=== PATIENT | female | born 1985 | race American Indian/Alaskan Native ===

== ENCOUNTER 2017-08-12 06:16 | Emergency (ER) | payer OTHER ==
[2017-08-12 06:16] VITALS: BMI 22.6
[2017-08-12 06:37] VITALS: RESP 20
[2017-08-12] MEDS ORDERED: Sodium Chloride 0.9% 1,000 ML IV ONE ×2 (06:48→10:07)
[2017-08-12] MEDS ORDERED: Sodium Chloride 0.9% 1,000 ML ONE ×2 (06:51→10:11)
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
[2017-08-12 07:48] LABS: HCG,QUALITATIVE URINE NEGATIVE (NEGATIVE)
[2017-08-12 07:52] LABS: BASO % 0.2 % (0.0-2.0); LYMPH # 1.5 K/uL (1.0-4.3); LYMPH % 12.1 % (20.0-40.0); MEAN CORPUSCULAR HEMOGLOBIN 28.8 pg (27.0-31.0); MONO # 0.5 K/uL (0.0-0.8); MONO % 3.8 % (0.0-10.0); NEUT # 10.1 K/uL (1.8-7.0); NEUT % 83.9 % (50.0-75.0); NRBC % 0.1 % (0.0-2.0); RBC 4.6 Mil/uL (3.80-5.20); RED CELL DISTRIBUTION WIDTH 14.7 % (11.5-14.5); WHITE BLOOD COUNT 12.1 K/uL (4.8-10.8)
[2017-08-12 07:56] LABS: SQUAMOUS EPITHIAL 1 /hpf (0-5); URINE BILIRUBIN NEGATIVE (NEGATIVE); URINE BLOOD 2+ (NEGATIVE); URINE CLARITY Clear (Clear); URINE COLOR Yellow (YELLOW); URINE GLUCOSE (UA) 1+ mg/dL (Normal); URINE LEUKOCYTE ESTERASE NEG Leu/uL (Negative); URINE PROTEIN 1+ mg/dL (NEGATIVE); URINE UROBILINOGEN NORMAL mg/dL (0.2-1.0)
[2017-08-12 07:59] LABS: HEMOGLOBIN 13.3 g/dL (11.0-16.0); MEAN CELL VOLUME 87.3 fL (81.0-99.0)
[2017-08-12 09:46] LABS: ALB/GLOB RATIO 1.2 (1.0-2.1); ALBUMIN 4.5 g/dL (3.5-5.0); ALT/SGPT 18 U/L (9-52); AST/SGOT 29 U/L (14-36); BLOOD UREA NITROGEN 5 mg/dL (7-17); CALCIUM 9.3 mg/dl (8.6-10.4); GFR AFRICAN-AMERICAN > 60; GFR NON-AFRICAN AMERICAN > 60; LIPASE 30 U/L (23-300)
--- NOTE | 2017-08-12 09:59 | CT ---
PROCEDURE: CT Abdomen and Pelvis without intravenous contrast HISTORY: abd pain, vomiting, diarrhea COMPARISON: None. TECHNIQUE: Without contrast.. Contrast Dose: 0 Radiation dose: Total exam DLP = 306.48 mGy-cm. This CT exam was performed using one or more of the following dose reduction techniques: Automated exposure control, adjustment of the mA and/or kV according to patient size, and/or use of iterative reconstruction technique. FINDINGS: LOWER THORAX: Unremarkable. LIVER: Unremarkable. No gross lesion or ductal dilatation. GALLBLADDER AND BILE DUCTS: Unremarkable. PANCREAS: Unremarkable. No gross lesion or ductal dilatation. SPLEEN: Unremarkable. ADRENALS: Unremarkable. No mass. KIDNEYS AND URETERS: Unremarkable. No hydronephrosis. No solid mass. VASCULATURE: Unremarkable. No aortic aneurysm. BOWEL: Unremarkable. No obstruction. No gross mural thickening. APPENDIX: Unremarkable. Normal appendix. PERITONEUM: Unremarkable. No free fluid. No free air. LYMPH NODES: Unremarkable. No enlarged lymph nodes. BLADDER: Unremarkable. REPRODUCTIVE: Normal uterus. No adnexal masses. BONES: No acute fracture. OTHER FINDINGS: None. IMPRESSION: Unremarkable abdominal/ pelvic CT examination.
[2017-08-12 11:42] VITALS: BP 160/95; PULSE 100; TEMP 98.7; O2SAT 100
== END 2017-08-12 12:03 | disposition home or self-care (01) ==
LOC: C.ER 06:16
DX: K52.9 Noninfective gastroenteritis and colitis, unspecified (principal); I10 Essential (primary) hypertension
CPT/HCPCS: 74176; 80053; 81001; 83690; 84703; 85025; 96361; 96365; 96372; 96375; 99285; J0500; J1885; J2405; J2765; J7040

== ENCOUNTER 2018-07-29 09:59 | Emergency (ER) | payer OTHER ==
[2018-07-29 10:05] VITALS: BMI 24.0
[2018-07-29 10:08] VITALS: BP 124/98; PULSE 102; RESP 18; TEMP 97; O2SAT 98
[2018-07-29] MEDS ORDERED: Oxycodone/Acetaminophen 5/325 mg Tab PO STA (10:42)
[2018-07-29] MEDS ORDERED: Lidocaine 1% Inj (20ml) INFIL STA (10:43)
[2018-07-29] MEDS ORDERED: Lidocaine Hydrochloride 5 ML INJ ONE (11:04)
[2018-07-29] MEDS ORDERED: Oxycodone/Acetaminophen 5/325 mg Tab ONE (11:04)
--- NOTE | 2018-07-29 11:23 | C.PDOC ---
History Of Present Illness 32 year old female presents to ED with complaint of left buttock pain and swelling for the past 2 days. She states that she once had an abscess in this area years ago. Patient denies any fall or injury. Time Seen by Provider: 07/29/18 10:15 Chief Complaint (Nursing): Abnormal Skin Integrity History Per: Patient History/Exam Limitations: no limitations Onset/Duration Of Symptoms: Days (2) Current Symptoms Are (Timing): Still Present Location Of Injury: Left: Buttock Quality Of Symptoms: Painful, Swollen Past Medical History Reviewed: Historical Data, Nursing Documentation, Vital Signs Vital Signs: Last Vital Signs Temp 97 F L 07/29/18 10:04 Pulse 102 H 07/29/18 10:04 Resp 18 07/29/18 10:04 BP 124/98 H 07/29/18 10:04 Pulse Ox 98 07/29/18 10:04 - Medical History PMH: HTN Denies: Chronic Kidney Disease Surgical History: No Surg Hx - [facility] Procedures INSERTION OF INFUSION DEV INTO SUP VENA CAVA, PERC APPROACH (03/22/17) LOW CERVICAL (10/17/14) TRANSFUSE NONAUT RED BLOOD CELLS IN PERIPH VEIN, PERC (03/22/17) ULTRASONOGRAPHY OF LEFT UPPER EXTREMITY VEINS, GUIDANCE (03/22/17) Family History: States: Unknown Family Hx - Social History Hx Tobacco Use: No Hx Alcohol Use: No Hx Substance Use: Yes - Immunization History Hx Tetanus Toxoid Vaccination: No Hx Influenza Vaccination: No Hx Pneumococcal Vaccination: No Review Of Systems Constitutional: Negative for: Fever, Chills, Weakness Gastrointestinal: Negative for: Hematochezia Genitourinary: Negative for: Dysuria, Frequency Musculoskeletal: Positive for: Back Pain (left buttock pain and swelling) Neurological: Negative for: Weakness, Numbness, Dizziness Physical Exam - Physical Exam Appears: Non-toxic, Other (mild pain) Skin: Normal Color, Warm, Dry, Other (in medial aspect of the left buttock 3 cm fluctuant abscess, tender to palpation) Head: Atraumatic, Normacephalic Neck: Normal ROM, Supple Chest: Symmetrical, No Deformity Cardiovascular: Rhythm Regular, No Murmur Respiratory: No Accessory Muscle Use Gastrointestinal/Abdominal: Soft, No Tenderness Extremity: Capillary Refill (<2 seconds) Extremity: Bilateral: Atraumatic, Normal Color And Temperature Pulses: Left Radial: Normal, Right Radial: Normal Neurological/Psych: Oriented x3, Normal Speech, Normal Cognition ED Course And Treatment O2 Sat by Pulse Oximetry: 98 (RA) Progress Note: Patient given Clindomycin PO and Percocet PO. Wound culture ordered for patient. I&D performed. Patient tolerated procedure. Upon reassessment, patient is resting comfortably, in no distress, and is stable for discharge. Patient is advised to follow up with PMD within 1-2 days. Patient is advised to return to ED if symptoms persist or worsen. Procedure: Blank - Time Out Time Out: Patient ID confirmed, Sterile procedures obs. - Procedure Procedure:: I & D - Performed by: Performed by:: Attending physician - Anesthetic Technique Anesthetic Technique: Local (4 mL) - Topical: Local/Regional Anesthetic:: Lidocaine 1% - Location Location: Left, Buttock - Description Discription of Procedure: 07/29/18 (11 blade with iodoform gauze one quarter inch) - Post-Procedure Post-procedure:: Hemostasis achieved, Dressing applied - Patient Tolerated Procedure Patient Tolerated Procedure:: Well Disposition Counseled Patient/Family Regarding: Studies Performed, Diagnosis, Need For Followup, Rx Given - Disposition Referrals: Braulio Jackson MD [Staff Provider] - Disposition: HOME/ ROUTINE Disposition Time: 11:25 Condition: STABLE Additional Instructions: FOLLOW UP WITH YOUR DOCTOR IN 1-2 DAYS RETURN TO ER IN 48 HOURS FOR WOUND CHECK/PACKING REMOVAL USE MEDICATIONS DIRECTED, AND FINISH ALL ANTIBIOTICS Prescriptions: Clindamycin [Cleocin] 300 mg PO TID #21 cap Hydrocodone/Acetaminophen [Hydrocodone-Acetamin 5-325 mg] 1 each PO Q6 PRN #12 tablet PRN Reason: PAIN Naproxen 375 mg PO BID PRN #20 tablet PRN Reason: pain Instructions: Boil (DC) Forms: [facility] (Kiswahili), Work Excuse Print Language: UKRAINIAN - Clinical Impression Clinical Impression: Abscess, gluteal cleft - Scribe Statement The provider has reviewed the documentation as recorded by the Scribe (Brianna Cosby) All medical record entries made by the Scribe were at my direction and personally dictated by me. I have reviewed the chart and agree that the record accurately reflects my personal performance of the history, physical exam, medical decision making, and the department course for this patient. I have also personally directed, reviewed, and agree with the discharge instructions and disposition.
== END 2018-07-29 11:34 | disposition home or self-care (01) ==
LOC: C.ER 09:59
DX: L02.31 Cutaneous abscess of buttock (principal)

== ENCOUNTER 2018-07-29 19:11 | Emergency (ER) | payer OTHER ==
[2018-07-29 19:11] VITALS: BMI 24.0
[2018-07-29 19:44] VITALS: BP 144/79; PULSE 68; RESP 18; TEMP 97.9; O2SAT 99
--- NOTE | 2018-07-29 20:04 | C.PDOC ---
History Of Present Illness 32 year old female presents to ED s/p I&D of gluteal abscess that was done in [facility] [place] ED earlier today. Patient states that she was at home cleaning and accidentally pulled the packing out. Time Seen by Provider: 07/29/18 19:41 Chief Complaint (Nursing): Wound Check History Per: Patient History/Exam Limitations: no limitations Onset/Duration Of Symptoms: Hrs Current Symptoms Are (Timing): Still Present Location Of Injury: Posterior: Buttock (gluteal abscess) Past Medical History Reviewed: Historical Data, Nursing Documentation, Vital Signs Vital Signs: Last Vital Signs Temp 97.9 F 07/29/18 19:39 Pulse 68 07/29/18 19:39 Resp 18 07/29/18 19:39 BP 144/79 07/29/18 19:39 Pulse Ox 99 07/29/18 19:39 - Medical History PMH: HTN Denies: Chronic Kidney Disease Surgical History: No Surg Hx - [facility] Procedures INSERTION OF INFUSION DEV INTO SUP VENA CAVA, PERC APPROACH (03/22/17) LOW CERVICAL (10/17/14) TRANSFUSE NONAUT RED BLOOD CELLS IN PERIPH VEIN, PERC (03/22/17) ULTRASONOGRAPHY OF LEFT UPPER EXTREMITY VEINS, GUIDANCE (03/22/17) Family History: States: Unknown Family Hx - Social History Hx Tobacco Use: No Hx Alcohol Use: No Hx Substance Use: Yes - Immunization History Hx Tetanus Toxoid Vaccination: No Hx Influenza Vaccination: No Hx Pneumococcal Vaccination: No Review Of Systems Constitutional: Negative for: Fever, Chills, Weakness Musculoskeletal: Positive for: Back Pain (packing from previous I&D of gluteal abscess came out) Skin: Negative for: Rash Neurological: Negative for: Weakness, Numbness, Dizziness Physical Exam - Physical Exam Appears: Well, Non-toxic, No Acute Distress Skin: Normal Color, Warm, Dry, Other (no pus or drainage coming from unpacked gluteal abscess) Head: Atraumatic, Normacephalic Neck: Normal ROM, Supple Chest: Symmetrical, No Deformity Cardiovascular: Rhythm Regular, No Murmur Respiratory: No Accessory Muscle Use Gastrointestinal/Abdominal: Soft, No Tenderness Extremity: Capillary Refill (<2 seconds) Extremity: Bilateral: Atraumatic, Normal Color And Temperature Pulses: Left Radial: Normal, Right Radial: Normal Neurological/Psych: Oriented x3, Normal Speech, Normal Cognition Gait: Steady ED Course And Treatment O2 Sat by Pulse Oximetry: 99 Medical Decision Making Medical Decision Making: Impression: Packing removed from previous I&D of gluteal abscess. Plan: Affected area was bandaged. Patient instructed to keep area clean and dry. Upon reassessment, patient is resting comfortably, in no distress, and is stable for discharge. Patient advised to follow instructions in caring for the afflict ed area. Patient is advised to return to ED if symptoms persist or worsen. Disposition Counseled Patient/Family Regarding: Diagnosis, Need For Followup - Disposition Disposition: HOME/ ROUTINE Disposition Time: 20:04 Condition: STABLE Instructions: Wound Care (DC) Forms: [facility] ([place]ian), General Discharge Instructions - Clinical Impression Clinical Impression: Wound check, abscess - PA / PAIRING MACHINE OPERATOR / Resident Statement MD/DO has reviewed & agrees with the documentation as recorded. (Brianna Cosby) - Scribe Statement The provider has reviewed the documentation as recorded by the Scribe (Brianna Cosby) All medical record entries made by the Scribe were at my direction and personally dictated by me. I have reviewed the chart and agree that the record accurately reflects my personal performance of the history, physical exam, medical decision making, and the department course for this patient. I have also personally directed, reviewed, and agree with the discharge instructions and disposition.
== END 2018-07-29 20:05 | disposition home or self-care (01) ==
LOC: C.ER 19:11
DX: Z48.00 Encounter for change or removal of nonsurgical wound dressing (principal); L02.212 Cutaneous abscess of back [any part, except buttock and flank]

== ENCOUNTER 2018-09-28 18:15 | Emergency (ER) | payer OTHER | END 2018-09-28 23:17 | disposition home or self-care (01) | LOC: C.ER 18:15 ==

== ENCOUNTER 2018-09-29 11:28 | Inpatient (IN) | payer OTHER ==
[2018-09-29 11:29] VITALS: BMI 24.0
--- NOTE | 2018-09-29 13:13 | C.PDOC ---
History Of Present Illness 32 y/o female here for left lower ab pain and vomiting today. pt seen in ed yesterday for heavy vaginal bleeding with clots; pt had no iup yesterday with bhcg 1210. pt sts she woke with pain, which has now resolved. and bleeding has s.lowed down/ pt eating potato chips in ed. Time Seen by Provider: 09/29/18 12:27 Chief Complaint (Nursing): Abdominal Pain History Per: Patient History/Exam Limitations: no limitations Onset/Duration Of Symptoms: Days Current Symptoms Are (Timing): Still Present Severity: Moderate Past Medical History Reviewed: Historical Data, Nursing Documentation, Vital Signs Vital Signs: Last Vital Signs Temp 98.6 F 09/29/18 11:37 Pulse 77 09/29/18 11:37 Resp 18 09/29/18 11:37 BP 138/90 09/29/18 11:37 Pulse Ox 99 09/29/18 11:37 - Medical History PMH: HTN Denies: Chronic Kidney Disease Other Surgeries: Hx of surgeries - [facility] Procedures INSERTION OF INFUSION DEV INTO SUP VENA CAVA, PERC APPROACH (03/22/17) LOW CERVICAL (10/17/14) TRANSFUSE NONAUT RED BLOOD CELLS IN PERIPH VEIN, PERC (03/22/17) ULTRASONOGRAPHY OF LEFT UPPER EXTREMITY VEINS, GUIDANCE (03/22/17) Family History: States: No Known Family Hx - Social History Hx Tobacco Use: No Hx Alcohol Use: No Hx Substance Use: Yes (daily use of marijuana) - Immunization History Hx Tetanus Toxoid Vaccination: No Hx Influenza Vaccination: No Hx Pneumococcal Vaccination: No Review Of Systems Constitutional: Negative for: Fever, Chills Cardiovascular: Negative for: Chest Pain Respiratory: Negative for: Shortness of Breath Gastrointestinal: Positive for: Vomiting, Abdominal Pain. Negative for: Diarrhea Genitourinary: Positive for: Vaginal Bleeding Physical Exam - Physical Exam Appears: Non-toxic, No Acute Distress Skin: Warm, Dry Head: Atraumatic, Normacephalic Eye(s): bilateral: Normal Inspection Oral Mucosa: Moist Neck: Supple Chest: Symmetrical Cardiovascular: Rhythm Regular Respiratory: No Decreased Breath Sounds, No Rales, No Rhonchi, No Wheezing Gastrointestinal/Abdominal: Bowel Sounds, Soft, No Tenderness, No Distention, No Guarding, No Rebound Neurological/Psych: Oriented x3, Normal Speech, Normal Cognition ED Course And Treatment - Laboratory Results Result Diagrams: 09/29/18 13:18 09/29/18 13:18 O2 Sat by Pulse Oximetry: 99 (RA) Pulse Ox Interpretation: Normal - CT Scan/US US-Transvag. Other Rad Studies (CT/US): Read By Radiologist, Radiology Report Reviewed CT/US Interpretation: IMPRESSION: No evidence for intrauterine gestational sac. Small amount of free fluid in the cul-de-sac and right adnexa. Medical Decision Making Medical Decision Making: Plan: --Labs --UA --US-Transvag. --IV Fluids --Zofran IV Updates: 1340 pt now with pain again in left pelvic area and nauseous, will get sonogram and give zofran and iv fluids. 1521 pt not vomiting, still with tender llq. bhcg decreased to 1210, unlikely to be ectopic with decreasing bchg. await us results. no iup or ectopic noted on us. pt has been vomiting and retching persistently and c/o epigastric abdominal pain . given zofran 2 times. reglan and pepcid iv. [address] Jackson; pt has been admitted to his service at [place] several times for hyperemesis related to marijuana use. pt denies recent marijuana use. agrees to admission. Disposition Discussed With Dr.: Dalton Virgen Doctor Will See Patient In The: Hospital - Disposition Disposition: HOSPITALIZED Disposition Time: 18:47 Condition: GOOD Forms: [facility] (Colombian) - Clinical Impression Clinical Impression: Intractable vomiting with nausea - PA / LEATHER SPRAYER / Resident Statement MD/DO has reviewed & agrees with the documentation as recorded. - Scribe Statement The provider has reviewed the documentation as recorded by the Myrnaibe Seb Sandhu Provider Attestation All medical record entries made by the Scribe were at my direction and personally dictated by me. I have reviewed the chart and agree that the record accurately reflects my personal performance of the history, physical exam, medical decision making, and the department course for this patient. I have also personally directed, reviewed, and agree with the discharge instructions and disposition.
[2018-09-29 13:23] LABS: BASO % 0.5 % (0.0-2.0); EOS % 0.2 % (0.0-4.0); HEMOGLOBIN 10.6 g/dL (11.0-16.0); LYMPH # 1.2 K/uL (1.0-4.3); LYMPH % 16.1 % (20.0-40.0); MEAN CELL VOLUME 79.8 fL (81.0-99.0); MEAN CORPUSCULAR HEMOGLOBIN 25.8 pg (27.0-31.0); MEAN CORPUSCULAR HGB CONC 32.3 g/dL (33.0-37.0); MEAN PLATELET VOLUME 8.2 fL (7.2-11.7); MONO # 0.4 K/uL (0.0-0.8); MONO % 4.8 % (0.0-10.0); NEUT % 78.4 % (50.0-75.0); RBC 4.13 Mil/uL (3.80-5.20); RED CELL DISTRIBUTION WIDTH 17.6 % (11.5-14.5); WHITE BLOOD COUNT 7.6 K/uL (4.8-10.8)
[2018-09-29] MEDS ORDERED: Sodium Chloride 0.9% 1,000 ML IV ONE ×2 (13:52→18:36)
[2018-09-29 13:57] LABS: ALB/GLOB RATIO 1.5 (1.0-2.1); ALBUMIN 4.2 g/dL (3.5-5.0); ALT/SGPT 15 U/L (9-52); AST/SGOT 19 U/L (14-36); BLOOD UREA NITROGEN 6 mg/dL (7-17); CALCIUM 9.1 mg/dl (8.6-10.4); GFR NON-AFRICAN AMERICAN > 60
[2018-09-29] MEDS ORDERED: Sodium Chloride 0.9% 1,000 ML ONE (14:25)
--- NOTE | 2018-09-29 15:34 | US ---
Date of service: 09/29/2018 HISTORY: +[facility] [place], 1210 yesterday, left pelvic pain COMPARISON: None available. TECHNIQUE: Transvaginal pelvic ultrasound was performed. FINDINGS: UTERUS: Measures 12.0 x 5.9 x 6.9 cm. Anteverted, normal in size and appearance. No fibroid or other mass lesion seen. ENDOMETRIUM: Measures 16 mm in diameter. The central endometrial echo complex is normal in appearance. CERVIX: No cervical abnormality identified. RIGHT OVARY: Measures 2.7 x 2.9 x 3.0 cm. No solid mass. Normal flow. LEFT OVARY: Measures 3.0 x 3.0 x 2.9 cm. No solid mass. Normal flow. There is a 1.7 x 1.0 x 1.0 cm corpus luteum cyst. FREE FLUID: There is small amount of free fluid in the cul-de-sac and right adnexa.. OTHER FINDINGS: None. IMPRESSION: No evidence for intrauterine gestational sac. Small amount of free fluid in the cul-de-sac and right adnexa.
[2018-09-29 15:56] LABS: SQUAMOUS EPITHIAL 1 /hpf (0-5); URINE AMORPHOUS SEDIMENT RARE /ul (<OCC); URINE BACTERIA OCC (<OCC); URINE BILIRUBIN NEGATIVE (NEGATIVE); URINE BLOOD 2+ (NEGATIVE); URINE CLARITY Hazy (Clear); URINE COLOR Yellow (YELLOW); URINE GLUCOSE (UA) NORMAL (Normal); URINE LEUKOCYTE ESTERASE TRACE Leu/uL (Negative); URINE PROTEIN 1+ mg/dL (NEGATIVE); URINE UROBILINOGEN NORMAL mg/dL (0.2-1.0)
--- NOTE | 2018-09-29 19:31 | CP.PCM.HP ---
"<Ford Salinas - Last Filed: 09/30/18 06:06> History of Present Illness - History of Present Illness History of Present Illness: 32 year old female presents to the hospital after reporting vaginal bleeding for the past two days. Patient initially reported the vaginal bleeding on 09/28/18. Patient states she was resting at home when all of a sudden she started to pass large amounts of bright red blood with clots. Patient also had associated abdominal cramping as well. Patient states the pain was a 8/10 in severity. Patient denied taking any medication for the pain. Patient subs equently went into the emergency department where she was found to likely have a miscarriage. Patient was discharged and told to follow up with OB-MUSIC PUBLICIST. The patient awoke this morning and starting having similar abdominal cramping associated with bright blood and clots. Over the course of the two days patient states she needed to change her pads every couple of hours. Patient reported the pain was a 8/10 in severity and she decided to come back into the hospital. 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 In conjunction with the cramping she reported some nausea. Patient denies any dizziness, chest pain, shortness of breath, fevers, chills, headaches, changes in vision, or any other complaints. 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) OBGyn hx: (1 miscariage and 1 ) LEEP procedure done (Normal) Surg: (at 18 years old), x1 FHx: DM, HTN,?Lung CA (Paternal grandmother) All: NKDA SH: 6-7 cig/day x 15 years, social EtOH use, marijuana daily x17 years Present on Admission - Present on Admission Any Indicators Present on Admission: No Past Patient History - Infectious Disease Hx of Infectious Diseases: None - Tetanus Immunizations Tetanus Immunization: Unknown - Past Social History Smoking Status: Never Smoked - CARDIAC Hx Hypertension: Yes - PULMONARY Hx Respiratory Disorders: No - NEUROLOGICAL Hx Neurological Disorder: No - HEENT Hx HEENT Problems: No - RENAL Hx Chronic Kidney Disease: No - ENDOCRINE/METABOLIC Hx Endocrine Disorders: No - HEMATOLOGICAL/ONCOLOGICAL Hx Blood Disorders: No - INTEGUMENTARY Hx Dermatological Problems: No - MUSCULOSKELETAL/RHEUMATOLOGICAL Hx Musculoskeletal Disorders: No Hx Falls: No - GASTROINTESTINAL Hx Vomiting: Yes - GENITOURINARY/GYNECOLOGICAL Hx Genitourinary Disorders: No - PSYCHIATRIC Hx Substance Use: Yes (daily use of marijuana) - SURGICAL HISTORY Hx Surgeries: Yes Hx Section: Yes Other/Comment: - ANESTHESIA Hx Anesthesia: Yes Hx Anesthesia Reactions: No Hx Malignant Hyperthermia: No Meds Allergies/Adverse Reactions: Allergies Allergy/AdvReac Type Severity Reaction Status Date / Time No Known Allergies Allergy Verified 09/29/18 11:42 Physical Exam - Head Exam Head Exam: ATRAUMATIC, NORMAL INSPECTION - Eye Exam Eye Exam: EOMI, Normal appearance, PERRL Pupil Exam: NORMAL ACCOMODATION, PERRL. absent: Irregular, Unequal - ENT Exam ENT Exam: Mucous Membranes Moist, Normal Oropharynx - Respiratory Exam Respiratory Exam: Clear to Auscultation Bilateral, NORMAL BREATHING PATTERN. absent: Respiratory Distress - Cardiovascular Exam Cardiovascular Exam: REGULAR RHYTHM, +S1, +S2 - GI/Abdominal Exam GI & Abdominal Exam: Normal Bowel Sounds, Soft, Tenderness. absent: Organomegaly - Exam Additional comments: Patient refused to have vaginal exam done by me during visit. - Extremities Exam Extremities exam: Positive for: normal inspection. Negative for: full ROM, pedal edema - Back Exam Back exam: NORMAL INSPECTION. absent: CVA tenderness (R), paraspinal tenderness - Neurological Exam Neurological exam: Alert, CN II-XII Intact, Oriented x3 - Psychiatric Exam Psychiatric exam: Normal Affect, Normal Mood - Skin Skin Exam: Dry, Intact Results - Vital Signs Recent Vital Signs: Last Vital Signs Temp 98.1 F 09/29/18 19:28 Pulse 94 H 09/29/18 19:28 Resp 16 09/29/18 19:28 BP 131/72 09/29/18 19:28 Pulse Ox 99 09/29/18 19:28 - Labs Result Diagrams: 09/29/18 13:18 09/29/18 13:18 Labs: Laboratory Results - last 24 hr 09/29/18 09/29/18 09/29/18 13:18 13:18 15:45 WBC 7.6 RBC 4.13 Hgb 10.6 L Hct 33.0 L MCV 79.8 L MCH 25.8 L MCHC 32.3 L RDW 17.6 H Plt Count 290 MPV 8.2 Neut % (Auto) 78.4 H Lymph % (Auto) 16.1 L [place] % (Auto) 4.8 Eos % (Auto) 0.2 Baso % (Auto) 0.5 Neut # (Auto) 6.0 Lymph # (Auto) 1.2 [place] # (Auto) 0.4 Eos # (Auto) 0.0 Baso # (Auto) 0.0 Sodium 137 Potassium 4.0 Chloride 105 Carbon Dioxide 27 Anion Gap 8 L BUN 6 L Creatinine 0.5 L Est GFR ( Amer) > 60 Est GFR (Non-Af Amer) > 60 Random Glucose 103 Calcium 9.1 Total Bilirubin 0.4 AST 19 ALT 15 Alkaline Phosphatase 74 Total Protein 7.1 Albumin 4.2 Globulin 2.9 Albumin/Globulin Ratio 1.5 Beta HCG, Quant 755.05 Urine Color Yellow Urine Clarity Hazy Urine pH 8.0 Ur Specific [place] 1.015 Urine Protein 1+ H Urine Glucose (UA) Normal Urine Ketones 1+ H Urine Blood 2+ H Urine Nitrate Negative Urine Bilirubin Negative Urine Urobilinogen Normal Ur Leukocyte Esterase Trace Urine WBC (Auto) 2 Urine RBC (Auto) 259 H Ur Squamous Epith Cells 1 Amorphous Sediment Rare H Urine Bacteria Occ H Assessment & Plan - Assessment and Plan (Free Text) Assessment: 32 year old female presents to the hospital after reporting vaginal bleeding for the past two days. Patient initially reported the vaginal bleeding on 09/28/18. Patient states she was resting at home when all of a sudden she started to pass large amounts of bright red blood with clots. 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 Abdomen/pelvis us: no evidence of intrauterine gestational sac, small amount of free fluid in cul de sac and right adnexa, [id number] corpus luteum cyst B-hcg intial 1210 (09/28/18). 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 Sales consulted --> Help appreciated Spoke with heating plant superintendent hospitalist Dr. Sales who recommended Methergine 0.2mg PO TID X3 Days, Zofran and Morphine. Medications: Methergine 0.2mg PO TID X 3 DAYS Morphine 2mg IVP Q4 PRN Zofran 4mg IVP Q6 PRN Reglan 10mg IVP Q8 LILLIAN 2.hx of Hypertension -Continue Norvasc 5mg PO DAILY PPX -Protonix -VTE CI due to patient vaginal bleeding.| SCD's -NS @125mls/hr Plan discussed with Attending Dr. Vasquez. Ford Salinas, PGY-2 <Jakub Vasquez - Last Filed: 09/30/18 06:58> Results - Vital Signs Recent Vital Signs: Last Vital Signs Temp 98.7 F 09/29/18 23:50 Pulse 102 H 09/29/18 23:50 Resp 20 09/29/18 23:50 BP 137/91 H 09/29/18 23:50 Pulse Ox 100 09/29/18 23:50 - Labs Result Diagrams: 09/29/18 13:18 09/29/18 13:18 Labs: Laboratory Results - last 24 hr 09/29/18 09/29/18 09/29/18 13:18 13:18 15:45 WBC 7.6 RBC 4.13 Hgb 10.6 L Hct 33.0 L MCV 79.8 L MCH 25.8 L MCHC 32.3 L RDW 17.6 H Plt Count 290 MPV 8.2 Neut % (Auto) 78.4 H Lymph % (Auto) 16.1 L [place] % (Auto) 4.8 Eos % (Auto) 0.2 Baso % (Auto) 0.5 Neut # (Auto) 6.0 Lymph # (Auto) 1.2 [place] # (Auto) 0.4 Eos # (Auto) 0.0 Baso # (Auto) 0.0 Sodium 137 Potassium 4.0 Chloride 105 Carbon Dioxide 27 Anion Gap 8 L BUN 6 L Creatinine 0.5 L Est GFR ( Amer) > 60 Est GFR (Non-Af Amer) > 60 Random Glucose 103 Calcium 9.1 Total Bilirubin 0.4 AST 19 ALT 15 Alkaline Phosphatase 74 Total Protein 7.1 Albumin 4.2 Globulin 2.9 Albumin/Globulin Ratio 1.5 Beta HCG, Quant 755.05 Urine Color Yellow Urine Clarity Hazy Urine pH 8.0 Ur Specific [place] 1.015 Urine Protein 1+ H Urine Glucose (UA) Normal Urine Ketones 1+ H Urine Blood 2+ H Urine Nitrate Negative Urine Bilirubin Negative Urine Urobilinogen Normal Ur Leukocyte Esterase Trace Urine WBC (Auto) 2 Urine RBC (Auto) 259 H Ur Squamous Epith Cells 1 Amorphous Sediment Rare H Urine Bacteria Occ H Urine HCG, Qual Urine Opiates Screen Urine Methadone Screen Ur Barbiturates Screen Ur Phencyclidine Scrn Ur Amphetamines Screen U Benzodiazepines Scrn U Oth Cocaine Metabols U Cannabinoids Screen Blood Type Antibody Screen 09/29/18 09/29/18 09/30/18 19:28 19:51 04:36 WBC RBC Hgb Hct MCV MCH MCHC RDW Plt Count MPV Neut % (Auto) Lymph % (Auto) [place] % (Auto) Eos % (Auto) Baso % (Auto) Neut # (Auto) Lymph # (Auto) [place] # (Auto) Eos # (Auto) Baso # (Auto) Sodium Potassium Chloride Carbon Dioxide Anion Gap BUN Creatinine Est GFR ( Amer) Est GFR (Non-Af Amer) Random Glucose Calcium Total Bilirubin AST ALT Alkaline Phosphatase Total Protein Albumin Globulin Albumin/Globulin Ratio Beta HCG, Quant Urine Color Yellow Urine Clarity Clear Urine pH 6.0 Ur Specific [place] 1.018 Urine Protein Negative Urine Glucose (UA) 1+ Urine Ketones Trace Urine Blood Negative Urine Nitrate Negative Urine Bilirubin Negative Urine Urobilinogen Normal Ur Leukocyte Esterase Neg Urine WBC (Auto) 1 Urine RBC (Auto) 9 H Ur Squamous Epith Cells < 1 Amorphous Sediment Urine Bacteria Urine HCG, Qual Urine Opiates Screen Negative Urine Methadone Screen Negative Ur Barbiturates Screen Negative Ur Phencyclidine Scrn Negative Ur Amphetamines Screen Negative U Benzodiazepines Scrn Negative U Oth Cocaine Metabols Negative U Cannabinoids Screen Positive H Blood Type A POSITIVE Antibody Screen Negative 09/30/18 09/30/18 04:36 04:36 WBC RBC Hgb Hct MCV MCH MCHC RDW Plt Count MPV Neut % (Auto) Lymph % (Auto) [place] % (Auto) Eos % (Auto) Baso % (Auto) Neut # (Auto) Lymph # (Auto) [place] # (Auto) Eos # (Auto) Baso # (Auto) Sodium Potassium Chloride Carbon Dioxide Anion Gap BUN Creatinine Est GFR ( Amer) Est GFR (Non-Af Amer) Random Glucose Calcium Total Bilirubin AST ALT Alkaline Phosphatase Total Protein Albumin Globulin Albumin/Globulin Ratio Beta HCG, Quant Urine Color Urine Clarity Urine pH Ur Specific [place] Urine Protein Urine Glucose (UA) Urine Ketones Urine Blood Urine Nitrate Urine Bilirubin Urine Urobilinogen Ur Leukocyte Esterase Urine WBC (Auto) Urine RBC (Auto) Ur Squamous Epith Cells Amorphous Sediment Urine Bacteria Urine HCG, Qual Positive Urine Opiates Screen Positive H Urine Methadone Screen Negative Ur Barbiturates Screen Negative Ur Phencyclidine Scrn Negative Ur Amphetamines Screen Negative U Benzodiazepines Scrn Negative U Oth Cocaine Metabols Negative U Cannabinoids Screen Positive H Blood Type Antibody Screen Attending/Attestation - Attestation I have personally seen and examined this patient.: Yes I have fully participated in the care of the patient.: Yes I have reviewed all pertinent clinical information: Yes"
[2018-09-29 19:50] LABS: BARBITURATES, UR NEGATIVE (NEGATIVE); BENZODIAZEPINES, UR NEGATIVE (NEGATIVE); OPIATES, UR NEGATIVE (NEGATIVE); PHENCYCLIDINE, UR NEGATIVE (NEGATIVE)
[2018-09-29 20:18] VITALS: RESP 20
[2018-09-29] MEDS: Sodium Chloride 0.9% 1,000 ML IV SCH (21:08)
--- NOTE | 2018-09-29 23:27 | CP.PCM.CON ---
History of Present Illness - History of Present Illness History of Present Illness: 32 yo female and presented to ER, for the second time in 2 days, with c/o of vaginal bleeding, intractable N&V and with a Hx of spontaneous miscarriage with subsequent bleeding that apparently decreased in intensity after she passed some tissue at home prior to coming in today. Admits to mild cramping but severe N&V despite Zofran and Reglan IV given. Review of Systems - Constitutional Constitutional: As Per HPI - Breasts Breasts: As Per HPI - Cardiovascular Cardiovascular: As Per HPI - Respiratory Respiratory: As Per HPI - Gastrointestinal Gastrointestinal: Heartburn, Loose Stools, Nausea, Vomiting - Genitourinary Genitourinary: As Per HPI - Reproductive: Female Reproductive:Female: Cycle <21 Days, Menses 1-7 Days, Cycle > 4 Weeks Between, Light Menses, Normal Menses - Menstruation Menstruation: As Per HPI, Cycle <21 Days - Musculoskeletal Musculoskeletal: As Per HPI - Integumentary Integumentary: As Per HPI - Neurological Neurological: As Per HPI - Psychiatric Psychiatric: Confusion, Hopelessness - Hematologic/Lymphatic Hematologic: Easy Bleeding Past Patient History - Infectious Disease Hx of Infectious Diseases: None - Tetanus Immunizations Tetanus Immunization: Unknown - Past Medical History & Family History Past Medical History?: Yes Past Family History: Reviewed and not pertinent - Past Social History Smoking Status: Light Smoker < 10 Cigarettes Daily Alcohol: Social Drugs: Other (Smokes Marihuana daily) - CARDIAC Hx Cardiac Disorders: No Hx Angina: No Hx Atrial Fibrillation: No Hx Cardia Arrhythmia: No Hx Circulatory Problems: No Hx Congestive Heart Failure: No Hx Heart Attack: No Hx Heart Murmur: No Hx Heart Transplant: No Hx Hypercholesterolemia: No Hx Hypertension: Yes (On meds) Hx Hypotension: No Hx Internal Defibrillator: No Hx Mitral Valve Prolapse: No Hx Pacemaker: No Hx Peripheral Edema: No Hx Peripheral Vascular Disease: No - PULMONARY Hx Respiratory Disorders: No - NEUROLOGICAL Hx Neurological Disorder: No - HEENT Hx HEENT Problems: No - RENAL Hx Chronic Kidney Disease: No - ENDOCRINE/METABOLIC Hx Endocrine Disorders: No - HEMATOLOGICAL/ONCOLOGICAL Hx Blood Disorders: No - INTEGUMENTARY Hx Dermatological Problems: No - MUSCULOSKELETAL/RHEUMATOLOGICAL Hx Musculoskeletal Disorders: No Hx Falls: No - GASTROINTESTINAL Hx Gastrointestinal Disorders: No Hx Vomiting: Yes - GENITOURINARY/GYNECOLOGICAL Hx Genitourinary Disorders: No Other/Comment: Hx of Abnormal PAP Smear and had a LEEP Cone Bx and Negative, per patient LMP:: 08/28/2018 : 4 Para: 2 Termination of : 1 - PSYCHIATRIC Hx Psychophysiologic Disorder: No Hx Substance Use: Yes (daily use of marijuana) - SURGICAL HISTORY Hx Surgeries: Yes Hx Section: Yes (X1) Other/Comment: D&C/TOP - ANESTHESIA Hx Anesthesia: Yes Hx Anesthesia Reactions: No Hx Malignant Hyperthermia: No Meds Allergies/Adverse Reactions: Allergies Allergy/AdvReac Type Severity Reaction Status Date / Time No Known Allergies Allergy Verified 09/29/18 11:42 - Medications Medications: Current Medications Amlodipine Besylate (Norvasc) 5 mg PO DAILY [facility] Sodium Chloride (Sodium Chloride 0.9%) 1,000 mls @ 125 mls/hr IV .Q8H [facility] Last Admin: 09/29/18 21:08 Dose: 125 mls/hr Methylergonovine Maleate (Methergine) 0.2 mg IM TID [facility] Metoclopramide HCl (Reglan) 10 mg IVP Q8 LILLIAN Morphine Sulfate (Morphine) 2 mg IVP Q6 PRN PRN Reason: Pain, moderate (4-7) Ondansetron HCl (Zofran Inj) 8 mg IVP Q4 LILLIAN Pantoprazole Sodium (Protonix Inj) 40 mg IVP DAILY [facility] Physical Exam - Respiratory Exam Respiratory Exam: Clear to Auscultation Bilateral, NORMAL BREATHING PATTERN - Cardiovascular Exam Cardiovascular Exam: REGULAR RHYTHM - GI/Abdominal Exam GI & Abdominal Exam: Soft, Tenderness - Rectal Exam Rectal Exam: NORMAL INSPECTION - Exam External exam: NORMAL EXTERNAL EXAM Speculum exam: Vaginal Bleeding Bimanual exam: NORMAL BIMANUAL EXAM - Extremities Exam Extremities exam: Positive for: normal inspection - Neurological Exam Neurological exam: Alert, Oriented x3 - Skin Skin Exam: Normal Color Results - Vital Signs Recent Vital Signs: Last Vital Signs Temp 98.5 F 09/29/18 20:05 Pulse 96 H 09/29/18 20:05 Resp 20 09/29/18 20:05 BP 145/88 09/29/18 20:05 Pulse Ox 98 09/29/18 22:57 - Labs Result Diagrams: 09/30/18 07:19 09/30/18 07:19 Labs: Laboratory Results - last 24 hr 09/29/18 09/29/18 09/29/18 13:18 13:18 15:45 WBC 7.6 RBC 4.13 Hgb 10.6 L Hct 33.0 L MCV 79.8 L MCH 25.8 L MCHC 32.3 L RDW 17.6 H Plt Count 290 MPV 8.2 Neut % (Auto) 78.4 H Lymph % (Auto) 16.1 L [place] % (Auto) 4.8 Eos % (Auto) 0.2 Baso % (Auto) 0.5 Neut # (Auto) 6.0 Lymph # (Auto) 1.2 [place] # (Auto) 0.4 Eos # (Auto) 0.0 Baso # (Auto) 0.0 Sodium 137 Potassium 4.0 Chloride 105 Carbon Dioxide 27 Anion Gap 8 L BUN 6 L Creatinine 0.5 L Est GFR ( Amer) > 60 Est GFR (Non-Af Amer) > 60 Random Glucose 103 Calcium 9.1 Total Bilirubin 0.4 AST 19 ALT 15 Alkaline Phosphatase 74 Total Protein 7.1 Albumin 4.2 Globulin 2.9 Albumin/Globulin Ratio 1.5 Beta HCG, Quant 755.05 Urine Color Yellow Urine Clarity Hazy Urine pH 8.0 Ur Specific [place] 1.015 Urine Protein 1+ H Urine Glucose (UA) Normal Urine Ketones 1+ H Urine Blood 2+ H Urine Nitrate Negative Urine Bilirubin Negative Urine Urobilinogen Normal Ur Leukocyte Esterase Trace Urine WBC (Auto) 2 Urine RBC (Auto) 259 H Ur Squamous Epith Cells 1 Amorphous Sediment Rare H Urine Bacteria Occ H Urine Opiates Screen Urine Methadone Screen Ur Barbiturates Screen Ur Phencyclidine Scrn Ur Amphetamines Screen U Benzodiazepines Scrn U Oth Cocaine Metabols U Cannabinoids Screen Blood Type Antibody Screen 09/29/18 09/29/18 19:28 19:51 WBC RBC Hgb Hct MCV MCH MCHC RDW Plt Count MPV Neut % (Auto) Lymph % (Auto) [place] % (Auto) Eos % (Auto) Baso % (Auto) Neut # (Auto) Lymph # (Auto) [place] # (Auto) Eos # (Auto) Baso # (Auto) Sodium Potassium Chloride Carbon Dioxide Anion Gap BUN Creatinine Est GFR ( Amer) Est GFR (Non-Af Amer) Random Glucose Calcium Total Bilirubin AST ALT Alkaline Phosphatase Total Protein Albumin Globulin Albumin/Globulin Ratio Beta HCG, Quant Urine Color Urine Clarity Urine pH Ur Specific [place] Urine Protein Urine Glucose (UA) Urine Ketones Urine Blood Urine Nitrate Urine Bilirubin Urine Urobilinogen Ur Leukocyte Esterase Urine WBC (Auto) Urine RBC (Auto) Ur Squamous Epith Cells Amorphous Sediment Urine Bacteria Urine Opiates Screen Negative Urine Methadone Screen Negative Ur Barbiturates Screen Negative Ur Phencyclidine Scrn Negative Ur Amphetamines Screen Negative U Benzodiazepines Scrn Negative U Oth Cocaine Metabols Negative U Cannabinoids Screen Positive H Blood Type A POSITIVE Antibody Screen Negative Assessment & Plan - Assessment and Plan (Free Text) Assessment: Spontaneous Miscarriage with some Retaine POC Minimal blood in vagina on speculum exam Severe N&V with Epigastric pain a heartburn Most likely Hyperemesis gravidarum/ Pt states that she always had this with all of her pregnancies Daily Marihuana smoker as well as cigarettes smoker daily Chronic Hypertension and on Norvasc daily Plan: Consider to treat her Hyperemesis agressively Recomend to increase zofran dose to 8 mg IV Q 4 hours, Add Pepcid and Increase timing of Reglan Will Start on Methergine 0.2 mg IV TID for now and will change to po when N&V improved 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 Fabricel sign off at this time. Please call again if need to reconsult at any time - Date & Time Date: 09/29/18 Time: 23:50
[2018-09-30 04:46] LABS: SQUAMOUS EPITHIAL < 1 /hpf (0-5); URINE BILIRUBIN NEGATIVE (NEGATIVE); URINE BLOOD NEGATIVE (NEGATIVE); URINE CLARITY Clear (Clear); URINE COLOR Yellow (YELLOW); URINE GLUCOSE (UA) 1+ mg/dL (Normal); URINE LEUKOCYTE ESTERASE NEG Leu/uL (Negative); URINE PROTEIN NEGATIVE (NEGATIVE); URINE UROBILINOGEN NORMAL mg/dL (0.2-1.0)
[2018-09-30 04:58] LABS: BARBITURATES, UR NEGATIVE (NEGATIVE); BENZODIAZEPINES, UR NEGATIVE (NEGATIVE); PHENCYCLIDINE, UR NEGATIVE (NEGATIVE)
[2018-09-30] MEDS: Sodium Chloride 0.9% 1,000 ML IV SCH ×2 (05:41→12:22)
[2018-09-30 06:05] LABS: OPIATES, UR POSITIVE (NEGATIVE)
[2018-09-30 07:31] LABS: BASO % 0.2 % (0.0-2.0); LYMPH # 0.9 K/uL (1.0-4.3); LYMPH % 10.2 % (20.0-40.0); MEAN CELL VOLUME 80.1 fL (81.0-99.0); MEAN CORPUSCULAR HGB CONC 32.5 g/dL (33.0-37.0); MEAN PLATELET VOLUME 8.5 fL (7.2-11.7); MONO # 0.3 K/uL (0.0-0.8); MONO % 3.5 % (0.0-10.0); NEUT # 7.3 K/uL (1.8-7.0); NEUT % 86.1 % (50.0-75.0); RBC 3.82 Mil/uL (3.80-5.20); RED CELL DISTRIBUTION WIDTH 17.7 % (11.5-14.5); WHITE BLOOD COUNT 8.5 K/uL (4.8-10.8)
--- NOTE | 2018-09-30 07:54 | CP.PCM.PN ---
<Joshua Howell - Last Filed: 09/30/18 15:08> Subjective - Date & Time of Evaluation Date of Evaluation: 09/30/18 Time of Evaluation: 07:53 - Subjective Subjective: PGY-1 Medicine Progress Note for Dr. Virgen Patient seen and examined at bedside this AM. Had one episode of NBNB vomiting during course of interview, however states that nausea/vomiting has generally improved and is asking to eat. Will try to advance diet slowly and see if patient tolerates. 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 This was not an intended , patient was not aware she was prior to arrival. She states she has had 1 miscarriage before. No other acute somatic complaints. 12 pt ROS reviewed and otherwise negative. Objective - Vital Signs/Intake and Output Vital Signs (last 24 hours): Temp Pulse Resp BP Pulse Ox 98.7 F 102 H 20 137/91 H 100 09/29/18 23:50 09/29/18 23:50 09/29/18 23:50 09/29/18 23:50 09/29/18 23:50 Intake and Output: 09/30/18 09/30/18 06:59 18:59 Intake Total 1000 Balance 1000 - Medications Medications: Current Medications Amlodipine Besylate (Norvasc) 5 mg PO DAILY [facility] Sodium Chloride (Sodium Chloride 0.9%) 1,000 mls @ 125 mls/hr IV .Q8H [facility] Last Admin: 09/30/18 05:41 Dose: 125 mls/hr Methylergonovine Maleate (Methergine) 0.2 mg IM TID [facility] Metoclopramide HCl (Reglan) 10 mg IVP Q8 PRN Last Admin: 09/30/18 02:20 Dose: 10 mg Morphine Sulfate (Morphine) 2 mg IVP Q6 PRN PRN Reason: Pain, moderate (4-7) Ondansetron HCl (Zofran Inj) 8 mg IVP Q4 PRN PRN Reason: Nausea/Vomiting Pantoprazole Sodium (Protonix Inj) 40 mg IVP DAILY [facility] - Labs Labs: 09/30/18 07:19 09/29/18 13:18 - Constitutional Appears: Non-toxic, No Acute Distress - Head Exam Head Exam: ATRAUMATIC, NORMAL INSPECTION, NORMOCEPHALIC - Eye Exam Eye Exam: EOMI, Normal appearance, PERRL Pupil Exam: NORMAL ACCOMODATION - ENT Exam ENT Exam: Mucous Membranes Moist, Normal Exam - Neck Exam Neck Exam: Full ROM, Normal Inspection - Respiratory Exam Respiratory Exam: Clear to Ausculation Bilateral, NORMAL BREATHING PATTERN. absent: Accessory Muscle Use, Rales, Rhonchi, Wheezes, Respiratory Distress, Stridor - Cardiovascular Exam Cardiovascular Exam: REGULAR RHYTHM, +S1, +S2 - GI/Abdominal Exam GI & Abdominal Exam: Soft, Normal Bowel Sounds. absent: Distended, Firm, Guarding, Rigid, Tenderness, Rebound - Extremities Exam Extremities Exam: Full ROM, Normal Capillary Refill, Normal Inspection. absent: Calf Tenderness, Pedal Edema - Back Exam Back Exam: NORMAL INSPECTION - Neurological Exam Neurological Exam: Alert, Awake, Oriented x3 - Skin Skin Exam: Dry, Intact, Normal Color, Warm Assessment and Plan - Assessment and Plan (Free Text) Assessment: 32 yo -[place] presents to the hospital after reporting vaginal bleeding for the past two days. Patient initially reported the vaginal bleeding on 09/28/18. Patient states she was resting at home when all of a sudden she started to pass large amounts of bright red blood with clots. 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 If able to tolerate meals and stable, likely d/c tomorrow. Case discussed with Dr. Promise Howell DO, PGY-1 <Dalton Virgen - Last Filed: 09/30/18 16:55> Objective - Vital Signs/Intake and Output Vital Signs (last 24 hours): Temp Pulse Resp BP Pulse Ox 98.4 F 88 20 173/91 H 98 09/30/18 16:00 09/30/18 16:00 09/30/18 16:00 09/30/18 16:00 09/30/18 16:13 Intake and Output: 09/30/18 09/30/18 06:59 18:59 Intake Total 1000 1600 Balance 1000 1600 - Medications Medications: Current Medications Amlodipine Besylate (Norvasc) 5 mg PO DAILY [facility] Sodium Chloride (Sodium Chloride 0.9%) 1,000 mls @ 125 mls/hr IV .Q8H [facility] Last Admin: 09/30/18 12:22 Dose: Not Given Methylergonovine Maleate (Methergine) 0.2 mg IM TID [facility] Last Admin: 09/30/18 13:55 Dose: 0.2 mg Metoclopramide HCl (Reglan) 10 mg IVP Q8 PRN Last Admin: 09/30/18 13:55 Dose: 10 mg Morphine Sulfate (Morphine) 2 mg IVP Q6 PRN PRN Reason: Pain, moderate (4-7) Last Admin: 09/30/18 13:55 Dose: 2 mg Ondansetron HCl (Zofran Inj) 8 mg IVP Q4 PRN PRN Reason: Nausea/Vomiting Pantoprazole Sodium (Protonix Inj) 40 mg IVP DAILY [facility] Last Admin: 09/30/18 09:55 Dose: 40 mg Pneumococcal Polyvalent Vaccine (Pneumovax 23 Vaccine) 0.5 ml IM .ONCE ONE Stop: 10/01/18 10:01 - Labs Labs: 09/30/18 07:19 09/30/18 07:19 Attending/Attestation - Attestation I have personally seen and examined this patient.: Yes I have fully participated in the care of the patient.: Yes I have reviewed all pertinent clinical information, including history, physical exam and plan: Yes Notes (Text): Patient was seen and examined. She has nausea and vomiting. States that she didn't vomit after liquids this morning continue zofran,reglan,fluids and Methergine s/p spontaneous miscarriage. no heavy bleeding possible discharge if she tolerates dinner
[2018-09-30 07:57] LABS: ALB/GLOB RATIO 1.6 (1.0-2.1); ALBUMIN 4.2 g/dL (3.5-5.0); ALT/SGPT 18 U/L (9-52); AST/SGOT 23 U/L (14-36); BLOOD UREA NITROGEN 6 mg/dL (7-17); CALCIUM 9.5 mg/dl (8.6-10.4); GFR NON-AFRICAN AMERICAN > 60
--- NOTE | 2018-09-30 16:30 | CP.PCM.DIS ---
Provider - Provider Date of Admission: 09/29/18 18:50 Attending physician: Dalton Virgen MD Consults: 09/29/18 22:13 Physician Consult Stat Comment: Consulting Provider: Peace Sales Consulting Physician: Peace Sales Reason for Consult: Vaginal bleeding/ miscarriage Time Spent in preparation of Discharge (in minutes): 40 Diagnosis - Discharge Diagnosis (1) Spontaneous Status: Acute (2) Intractable vomiting with nausea Status: Resolved Hospital Course - Lab Results Lab Results: Most Recent Lab Values WBC 8.5 K/uL (4.8-10.8) 09/30/18 07:19 RBC 3.82 Mil/uL (3.80-5.20) 09/30/18 07:19 Hgb 10.0 g/dL (11.0-16.0) L 09/30/18 07:19 Hct 30.7 % (34.0-47.0) L 09/30/18 07:19 MCV 80.1 fL (81.0-99.0) L 09/30/18 07:19 MCH 26.0 pg (27.0-31.0) L 09/30/18 07:19 MCHC 32.5 g/dL (33.0-37.0) L 09/30/18 07:19 RDW 17.7 % (11.5-14.5) H 09/30/18 07:19 Plt Count 264 K/uL (130-400) 09/30/18 07:19 MPV 8.5 fL (7.2-11.7) 09/30/18 07:19 Neut % (Auto) 86.1 % (50.0-75.0) H 09/30/18 07:19 Lymph % (Auto) 10.2 % (20.0-40.0) L 09/30/18 07:19 [place] % (Auto) 3.5 % (0.0-10.0) 09/30/18 07: Eos % (Auto) 0.0 % (0.0-4.0) 09/30/18 07:19 Baso % (Auto) 0.2 % (0.0-2.0) 09/30/18 07:19 Neut # (Auto) 7.3 K/uL (1.8-7.0) H 09/30/18 07:19 Lymph # (Auto) 0.9 K/uL (1.0-4.3) L 09/30/18 07:19 [place] # (Auto) 0.3 K/uL (0.0-0.8) 09/30/18 07:19 Eos # (Auto) 0.0 K/uL (0.0-0.7) 09/30/18 07:19 Baso # (Auto) 0.0 K/uL (0.0-0.2) 09/30/18 07:19 Sodium 134 mmol/L (132-148) 09/30/18 07:19 Potassium 3.7 mmol/L (3.6-5.2) 09/30/18 07:19 Chloride 103 mmol/L (98-107) 09/30/18 07:19 Carbon Dioxide 23 mmol/L (22-30) 09/30/18 07:19 Anion Gap 12 (10-20) 09/30/18 07:19 BUN 6 mg/dL (7-17) L 09/30/18 07:19 Creatinine 0.5 mg/dL (0.7-1.2) L 09/30/18 07:19 Est GFR ( Amer) > 60 09/30/18 07:19 Est GFR (Non-Af Amer) > 60 09/30/18 07:19 Random Glucose 128 mg/dL (65-105) H D 09/30/18 07:19 Calcium 9.5 mg/dl (8.6-10.4) 09/30/18 07:19 Phosphorus 2.6 mg/dL (2.5-4.5) 09/30/18 07:19 Magnesium 1.5 mg/dL (1.6-2.3) L 09/30/18 07:19 Total Bilirubin 0.3 mg/dL (0.2-1.3) 09/30/18 07:19 AST 23 U/L (14-36) 09/30/18 07:19 ALT 18 U/L (9-52) 09/30/18 07:19 Alkaline Phosphatase 75 U/L (38-126) 09/30/18 07:19 Total Protein 6.8 g/dL (6.3-8.3) 09/30/18 07:19 Albumin 4.2 g/dL (3.5-5.0) 09/30/18 07: Globulin 2.6 gm/dL (2.2-3.9) 09/30/18 07: Albumin/Globulin Ratio 1.6 (1.0-2.1) 09/30/18 07:19 Beta HCG, Quant 439.40 mIU/ML 09/30/18 07:19 Urine Color Yellow (YELLOW) 09/30/18 04:36 Urine Clarity Clear (Clear) 09/30/18 04:36 Urine pH 6.0 (5.0-8.0) 09/30/18 04:36 Ur Specific [place] 1.018 (1.003-1.030) 09/30/18 04:36 Urine Protein Negative mg/dL (NEGATIVE) 09/30/18 04:36 Urine Glucose (UA) 1+ mg/dL (Normal) 09/30/18 04:36 Urine Ketones Trace mg/dL (NEGATIVE) 09/30/18 04:36 Urine Blood Negative (NEGATIVE) 09/30/18 04:36 Urine Nitrate Negative (NEGATIVE) 09/30/18 04:36 Urine Bilirubin Negative (NEGATIVE) 09/30/18 04:36 Urine Urobilinogen Normal mg/dL (0.2-1.0) 09/30/18 04:36 Ur Leukocyte Esterase Neg Efren/uL (Negative) 09/30/18 04:36 Urine WBC (Auto) 1 /hpf (0-5) 09/30/18 04:36 Urine RBC (Auto) 9 /hpf (0-3) H 09/30/18 04:36 Ur Squamous Epith Cells < 1 /hpf (0-5) 09/30/18 04:36 Amorphous Sediment Rare /ul (<OCC) H 09/29/18 15:45 Urine Bacteria Occ (<OCC) H 09/29/18 15:45 Urine HCG, Qual Positive (NEGATIVE) 09/30/18 04:36 Urine Opiates Screen Positive (NEGATIVE) H 09/30/18 04:36 Urine Methadone Screen Negative (NEGATIVE) 09/30/18 04:36 Ur Barbiturates Screen Negative (NEGATIVE) 09/30/18 04:36 Ur Phencyclidine Scrn Negative (NEGATIVE) 09/30/18 04:36 Ur Amphetamines Screen Negative (NEGATIVE) 09/30/18 04:36 U Benzodiazepines Scrn Negative (NEGATIVE) 09/30/18 04:36 U Oth Cocaine Metabols Negative (NEGATIVE) 09/30/18 04:36 U Cannabinoids Screen Positive (NEGATIVE) H 09/30/18 04:36 Blood Type A POSITIVE 09/29/18 19:51 Antibody Screen Negative 09/29/18 19:51 - Hospital Course Hospital Course: HPI: 32 year old female presents to the hospital after reporting vaginal bleeding for the past two days. Patient initially reported the vaginal bleeding on 09/28/18. Patient states she was resting at home when all of a sudden she started to pass large amounts of bright red blood with clots. Patient also had associated abdominal cramping as well. Patient states the pain was a 8/10 in severity. Patient denied taking any medication for the pain. Patient subsequently went into the emergency department where she was found to likely have a miscarriage. Patient was discharged and told to follow up with OB-COMPRESSOR OPERATOR. The patient awoke this morning and starting having similar abdominal cramping associated with bright blood and clots. Over the course of the two days patient states she needed to change her pads every couple of hours. Patient reported the pain was a 8/10 in severity and she decided to come back into the hospital. Patient states she didn't have time to see her OB-integrity assessor. In conjunction with the cramping she reported some nausea. Patient denies any dizziness, chest pain, shortness of breath, fevers, chills, headaches, changes in vision, or any other complaints. The following is a summary of hospital course. For full detail, please refer to EMR: Spontaneous miscarriage -Hb/Hct stable, continue to monitor -HCG downtrending -PUMPING PLANT OPERATOR recs (Dr. Sales) appreciated -methergine 0.2 mg IV TID started, will change to PO when nausea and vomiting improve -will need to complete 3 days total of methergine 0.2 mg TID -will need to follow up with her OBGYN doctor to make certaine that her BHCG goes down to 0 -continue Pelvic Rest -advised not to attempt for at least 6 months Nausea and vomiting -Zofran 8 mg IVP Q6 PRN -Reglan 10 mg IVP Q8 LILLIAN Hx of HTN -Norvasc 5 mg PO daily PPx, Diet, Disposition -DVT ppx: scds -GI ppx: protonix -Diet: start on full liquid, advance as tolerated On discharge: Patient is medically stable for discharge to home, as per Dr. Virgen. Patient is instructed to take the following medication as prescribed to control vaginal bleeding: Methergine 0.2 mg PO tablet, three times daily for a total of 3 days The following medication has also been provided for nausea, to take as needed: Zofran 8 mg PO tablet, 1 tablet every 8 hours as needed Patient will need to follow up with her private PUMPING PLANT OPERATOR doctor to make certain that her BHCG goes down to zero. Continue pelvic rest. Patient is advised to not attempt for at least 6 months. If symptoms worsen or recur, please return to ED immediately. - Date & Time of H&P Date of H&P: 09/30/18 Time of H&P: 16:28 Discharge Exam - Head Exam Head Exam: ATRAUMATIC, NORMAL INSPECTION, NORMOCEPHALIC - Eye Exam Eye Exam: EOMI, Normal appearance Pupil Exam: NORMAL ACCOMODATION - ENT Exam ENT Exam: Mucous Membranes Moist, Normal Exam - Neck Exam Neck exam: Full Rom, Normal Inspection - Respiratory Exam Respiratory Exam: Clear to PA & Lateral, NORMAL BREATHING PATTERN, UNREMARKABLE. absent: Accessory Muscle Use, Rales, Rhonchi, Wheezes, Respiratory Distress, Stridor - Cardiovascular Exam Cardiovascular Exam: REGULAR RHYTHM, +S1, +S2 - GI/Abdominal Exam GI & Abdominal Exam: Normal Bowel Sounds, Soft, Unremarkable. absent: Distended, Firm, Guarding, Rebound, Rigid, Tenderness - Extremities Exam Extremities exam: normal capillary refill, normal inspection, pedal pulses present - Back Exam Back exam: NORMAL INSPECTION - Neurological Exam Neurological exam: Alert, CN II-XII Intact, Normal Gait, Oriented x3 - Skin Skin Exam: Dry, Intact, Normal Color, Warm Discharge Plan - Discharge Medications Prescriptions: amLODIPine [Norvasc] 5 mg PO DAILY #30 tab Methylergonovine Maleate [Methergine] 0.2 mg PO TID #9 tablet Ondansetron [Zofran] 8 mg PO Q8H PRN 3 Days tab PRN Reason: Nausea/Vomiting - Follow Up Plan Condition: GOOD Disposition: HOME/ ROUTINE Additional Instructions: Patient is medically stable for discharge to home, as per Dr. Virgen. Patient is instructed to take the following medication as prescribed to control vaginal bleeding: Methergine 0.2 mg PO tablet, three times daily for a total of 3 days The following medication has also been provided for nausea, to take as needed: Zofran 8 mg PO tablet, 1 tablet every 8 hours as needed Patient will need to follow up with her private PUMPING PLANT OPERATOR doctor to make certain that her BHCG goes down to zero. Continue pelvic rest. Patient is advised to not attempt for at least 6 months. If symptoms worsen or recur, please return to ED immediately.
[2018-10-01] MEDS: Sodium Chloride 0.9% 1,000 ML IV SCH ×5 (00:31→21:01)
[2018-10-01 07:37] LABS: BASO % 0.3 % (0.0-2.0); HEMOGLOBIN 9.8 g/dL (11.0-16.0); LYMPH # 1.1 K/uL (1.0-4.3); LYMPH % 10.5 % (20.0-40.0); MEAN CELL VOLUME 80.4 fL (81.0-99.0); MEAN CORPUSCULAR HEMOGLOBIN 26.2 pg (27.0-31.0); MEAN CORPUSCULAR HGB CONC 32.5 g/dL (33.0-37.0); MEAN PLATELET VOLUME 8.6 fL (7.2-11.7); MONO # 0.6 K/uL (0.0-0.8); MONO % 5.7 % (0.0-10.0); NEUT # 8.4 K/uL (1.8-7.0); NEUT % 83.5 % (50.0-75.0); RBC 3.75 Mil/uL (3.80-5.20); RED CELL DISTRIBUTION WIDTH 17.6 % (11.5-14.5); WHITE BLOOD COUNT 10.1 K/uL (4.8-10.8)
[2018-10-01 08:34] LABS: ALB/GLOB RATIO 1.6 (1.0-2.1); ALBUMIN 3.9 g/dL (3.5-5.0); ALT/SGPT 29 U/L (9-52); AST/SGOT 36 U/L (14-36); BLOOD UREA NITROGEN 5 mg/dL (7-17); CALCIUM 8.8 mg/dl (8.6-10.4); GFR NON-AFRICAN AMERICAN > 60
[2018-10-01] MEDS ORDERED: Pneumococcal 23-Valent Vaccine IM ONE (10:00)
[2018-10-01] MEDS: Promethazine 6.25 MG/5 ML CUP PO SCH ×2 (11:57→16:15)
--- NOTE | 2018-10-01 17:09 | CP.PCM.PN ---
<Joshua Howell - Last Filed: 10/01/18 17:06> Subjective - Date & Time of Evaluation Date of Evaluation: 10/01/18 Time of Evaluation: 17:06 - Subjective Subjective: PGY-1 Medicine Progress Note for Dr. Virgen Patient seen and examined at bedside. Discharge was planned for yesterday afternoon; however, patient was unable to leave due to continuous nausea and bouts of vomiting. She continues to have episodes of vomiting today intermittently, non-bloody/non-bilious in nature. We will scale back on her diet and advance slow, continuing to monitor. Vaginal bleeding is minimal at this point and under control, per patient. No other acute somatic complaints. Objective - Vital Signs/Intake and Output Vital Signs (last 24 hours): Temp Pulse Resp BP Pulse Ox 98.9 F 85 20 160/90 H 99 10/01/18 15:00 10/01/18 15:00 10/01/18 15:00 10/01/18 15:00 10/01/18 15:00 Intake and Output: 10/01/18 10/01/18 06:59 18:59 Intake Total 600 250 Balance 600 250 - Medications Medications: Current Medications Amlodipine Besylate (Norvasc) 5 mg PO DAILY [facility] Last Admin: 10/01/18 09:26 Dose: 5 mg Sodium Chloride (Sodium Chloride 0.9%) 1,000 mls @ 125 mls/hr IV .Q8H [facility] Last Admin: 10/01/18 12:45 Dose: Not Given Methylergonovine Maleate (Methergine) 0.2 mg IM TID [facility] Last Admin: 10/01/18 13:36 Dose: 0.2 mg Metoclopramide HCl (Reglan) 10 mg IVP Q8 PRN Last Admin: 10/01/18 07:24 Dose: 10 mg Morphine Sulfate (Morphine) 2 mg IVP Q6 PRN PRN Reason: Pain, moderate (4-7) Last Admin: 10/01/18 05:20 Dose: 2 mg Ondansetron HCl (Zofran Inj) 8 mg IVP Q4 PRN PRN Reason: Nausea/Vomiting Last Admin: 10/01/18 08:48 Dose: 8 mg Pantoprazole Sodium (Protonix Inj) 40 mg IVP DAILY [facility] Last Admin: 10/01/18 09:25 Dose: 40 mg Promethazine HCl (Phenergan Syrup) 6.25 mg PO Q4 LILLIAN Last Admin: 10/01/18 16:15 Dose: 6.25 mg - Labs Labs: 10/01/18 07:25 10/01/18 07:20 - Constitutional Appears: Non-toxic, No Acute Distress - Head Exam Head Exam: ATRAUMATIC, NORMAL INSPECTION, NORMOCEPHALIC - Eye Exam Eye Exam: EOMI, Normal appearance, PERRL Pupil Exam: NORMAL ACCOMODATION - ENT Exam ENT Exam: Mucous Membranes Moist, Normal Exam - Neck Exam Neck Exam: Full ROM, Normal Inspection - Respiratory Exam Respiratory Exam: Clear to Ausculation Bilateral, NORMAL BREATHING PATTERN. absent: Accessory Muscle Use, Rales, Rhonchi, Wheezes, Respiratory Distress, Stridor - Cardiovascular Exam Cardiovascular Exam: REGULAR RHYTHM, +S1, +S2 - GI/Abdominal Exam GI & Abdominal Exam: Soft, Normal Bowel Sounds. absent: Distended, Firm, Guarding, Rigid, Tenderness, Rebound - Extremities Exam Extremities Exam: Full ROM, Normal Capillary Refill, Normal Inspection. absent: Calf Tenderness, Pedal Edema - Back Exam Back Exam: NORMAL INSPECTION - Neurological Exam Neurological Exam: Alert, Awake, Normal Gait, Oriented x3 - Skin Skin Exam: Dry, Intact, Normal Color, Warm Assessment and Plan - Assessment and Plan (Free Text) Assessment: 32 yo -[place] presents to the hospital after reporting vaginal bleeding for the past two days. Patient initially reported the vaginal bleeding on 09/28/18. Patient states she was resting at home when all of a sudden she started to pass large amounts of bright red blood with clots. Plan: Spontaneous miscarriage -Hb/Hct stable, continue to monitor -HCG downtrending -HORTICULTURAL WORKER recs (Dr. Sales) appreciated -methergine 0.2 mg IV TID started, will change to PO when nausea and vomiting improve -will need to complete 3 days total of methergine 0.2 mg TID -will need to follow up with her OBGYN doctor to make certaine that her BHCG goes down to 0 -continue Pelvic Rest -advised not to attempt for at least 6 months Nausea and vomiting -Zofran 8 mg IVP Q6 PRN -Reglan 10 mg IVP Q8 LILLIAN -Promethazine 6.25 mg PO q4 prn Hx of HTN -Norvasc 5 mg PO daily PPx, Diet, Disposition -DVT ppx: scds -GI ppx: protonix -Diet: clear liquids, advance as tolerated -Disposition: continue to monitor vomiting. If able to tolerate meals and stable, can d/c home Case discussed with Dr. Promise Howell DO, PGY-1 <Dalton Virgen - Last Filed: 10/01/18 17:16> Objective - Vital Signs/Intake and Output Vital Signs (last 24 hours): Temp Pulse Resp BP Pulse Ox 98.9 F 85 20 160/90 H 99 10/01/18 15:00 10/01/18 15:00 10/01/18 15:00 10/01/18 15:00 10/01/18 15:00 Intake and Output: 10/01/18 10/01/18 06:59 18:59 Intake Total 600 250 Balance 600 250 - Medications Medications: Current Medications Amlodipine Besylate (Norvasc) 5 mg PO DAILY [facility] Last Admin: 10/01/18 09:26 Dose: 5 mg Sodium Chloride (Sodium Chloride 0.9%) 1,000 mls @ 125 mls/hr IV .Q8H [facility] Last Admin: 10/01/18 12:45 Dose: Not Given Methylergonovine Maleate (Methergine) 0.2 mg IM TID [facility] Last Admin: 10/01/18 13:36 Dose: 0.2 mg Metoclopramide HCl (Reglan) 10 mg IVP Q8 PRN Last Admin: 10/01/18 07:24 Dose: 10 mg Morphine Sulfate (Morphine) 2 mg IVP Q6 PRN PRN Reason: Pain, moderate (4-7) Last Admin: 10/01/18 05:20 Dose: 2 mg Ondansetron HCl (Zofran Inj) 8 mg IVP Q4 PRN PRN Reason: Nausea/Vomiting Last Admin: 10/01/18 08:48 Dose: 8 mg Pantoprazole Sodium (Protonix Inj) 40 mg IVP DAILY [facility] Last Admin: 10/01/18 09:25 Dose: 40 mg Promethazine HCl (Phenergan Syrup) 6.25 mg PO Q4 PRN PRN Reason: Nausea/Vomiting - Labs Labs: 10/01/18 07:25 10/01/18 07:20 Attending/Attestation - Attestation I have personally seen and examined this patient.: Yes I have fully participated in the care of the patient.: Yes I have reviewed all pertinent clinical information, including history, physical exam and plan: Yes Notes (Text): 1.Hyperemisis 2.Intractable vomiting not tolerating diet,vomiting,made inpatient,spoke to Product Control And Logistics Analyst stop Methergine,zofran and reglan as needed.
[2018-10-01] MEDS ORDERED: Promethazine 6.25 MG/5 ML CUP PO PRN (17:11)
[2018-10-01] MEDS ORDERED: Potassium Chloride 20 mEq ER Tab PO ONE (17:42)
[2018-10-01 23:28] VITALS: O2SAT 100
[2018-10-02] MEDS: Sodium Chloride 0.9% 1,000 ML IV SCH ×2 (01:46→04:03)
[2018-10-02 08:01] VITALS: BP 157/92; PULSE 75; TEMP 98.6
[2018-10-02 08:02] LABS: ALB/GLOB RATIO 1.5 (1.0-2.1); ALBUMIN 3.8 g/dL (3.5-5.0); ALT/SGPT 43 U/L (9-52); AST/SGOT 42 U/L (14-36); BLOOD UREA NITROGEN 4 mg/dL (7-17); CALCIUM 8.8 mg/dl (8.6-10.4); GFR NON-AFRICAN AMERICAN > 60
[2018-10-02] MEDS ORDERED: Sodium Chloride 0.9% 1,000 ML IV SCH (08:11)
[2018-10-02 08:19] LABS: HEMOGLOBIN 10.5 g/dL (11.0-16.0); LYMPH # 1.7 K/uL (1.0-4.3); LYMPH % 22.4 % (20.0-40.0); MEAN CELL VOLUME 79.2 fL (81.0-99.0); MEAN CORPUSCULAR HEMOGLOBIN 26.2 pg (27.0-31.0); MEAN CORPUSCULAR HGB CONC 33.1 g/dL (33.0-37.0); MEAN PLATELET VOLUME 8.9 fL (7.2-11.7); MONO # 0.7 K/uL (0.0-0.8); MONO % 8.7 % (0.0-10.0); NEUT # 5.2 K/uL (1.8-7.0); NEUT % 68.9 % (50.0-75.0); NRBC % 0.1 % (0.0-2.0); RED CELL DISTRIBUTION WIDTH 17.6 % (11.5-14.5); WHITE BLOOD COUNT 7.5 K/uL (4.8-10.8)
--- NOTE | 2018-10-02 09:57 | CP.PCM.DIS ---
Provider - Provider Date of Admission: 10/01/18 10:58 Attending physician: Dalton Virgen MD Primary care physician: Manuel Consults: 09/29/18 22:13 Physician Consult Stat Comment: Consulting Provider: Peace Sales Consulting Physician: Peace Sales Reason for Consult: Vaginal bleeding/ miscarriage Time Spent in preparation of Discharge (in minutes): 45 Diagnosis - Discharge Diagnosis (1) Spontaneous Status: Acute Priority: High (2) Intractable vomiting with nausea Status: Resolved Priority: High (3) HTN (hypertension) Status: Chronic Priority: Medium Hospital Course - Lab Results Lab Results: Most Recent Lab Values WBC 7.5 K/uL (4.8-10.8) 10/02/18 07:06 RBC 4.00 Mil/uL (3.80-5.20) 10/02/18 07:06 Hgb 10.5 g/dL (11.0-16.0) L 10/02/18 07:06 Hct 31.7 % (34.0-47.0) L 10/02/18 07:06 MCV 79.2 fL (81.0-99.0) L 10/02/18 07:06 MCH 26.2 pg (27.0-31.0) L 10/02/18 07:06 MCHC 33.1 g/dL (33.0-37.0) 10/02/18 07:06 RDW 17.6 % (11.5-14.5) H 10/02/18 07:06 Plt Count 289 K/uL (130-400) 10/02/18 07:06 MPV 8.9 fL (7.2-11.7) 10/02/18 07:06 Neut % (Auto) 68.9 % (50.0-75.0) 10/02/18 07:06 Lymph % (Auto) 22.4 % (20.0-40.0) 10/02/18 07:06 [place] % (Auto) 8.7 % (0.0-10.0) 10/02/18 07:06 Eos % (Auto) 0.0 % (0.0-4.0) 10/02/18 07:06 Baso % (Auto) 0.0 % (0.0-2.0) 10/02/18 07:06 Neut # (Auto) 5.2 K/uL (1.8-7.0) 10/02/18 07:06 Lymph # (Auto) 1.7 K/uL (1.0-4.3) 10/02/18 07:06 [place] # (Auto) 0.7 K/uL (0.0-0.8) 10/02/18 07:06 Eos # (Auto) 0.0 K/uL (0.0-0.7) 10/02/18 07:06 Baso # (Auto) 0.0 K/uL (0.0-0.2) 10/02/18 07:06 Sodium 131 mmol/L (132-148) L 10/02/18 07:06 Potassium 3.0 mmol/L (3.6-5.2) L 10/02/18 07:06 Chloride 96 mmol/L (98-107) L 10/02/18 07:06 Carbon Dioxide 28 mmol/L (22-30) 10/02/18 07:06 Anion Gap 10 (10-20) 10/02/18 07:06 BUN 4 mg/dL (7-17) L 10/02/18 07:06 Creatinine 0.5 mg/dL (0.7-1.2) L 10/02/18 07:06 Est GFR ( Amer) > 60 10/02/18 07:06 Est GFR (Non-Af Amer) > 60 10/02/18 07:06 Random Glucose 100 mg/dL (65-105) 10/02/18 07:06 Calcium 8.8 mg/dl (8.6-10.4) 10/02/18 07:06 Phosphorus 2.6 mg/dL (2.5-4.5) 09/30/18 07:19 Magnesium 1.5 mg/dL (1.6-2.3) L 09/30/18 07:19 Total Bilirubin 0.6 mg/dL (0.2-1.3) 10/02/18 07:06 AST 42 U/L (14-36) H 10/02/18 07:06 ALT 43 U/L (9-52) 10/02/18 07:06 Alkaline Phosphatase 70 U/L (38-126) 10/02/18 07:06 Total Protein 6.2 g/dL (6.3-8.3) L 10/02/18 07:06 Albumin 3.8 g/dL (3.5-5.0) 10/02/18 07:06 Globulin 2.5 gm/dL (2.2-3.9) 10/02/18 07:06 Albumin/Globulin Ratio 1.5 (1.0-2.1) 10/02/18 07:06 Beta HCG, Quant 249.23 mIU/ML 10/01/18 07:20 Urine Color Yellow (YELLOW) 09/30/18 04:36 Urine Clarity Clear (Clear) 09/30/18 04:36 Urine pH 6.0 (5.0-8.0) 09/30/18 04:36 Ur Specific [place] 1.018 (1.003-1.030) 09/30/18 04:36 Urine Protein Negative mg/dL (NEGATIVE) 09/30/18 04:36 Urine Glucose (UA) 1+ mg/dL (Normal) 09/30/18 04:36 Urine Ketones Trace mg/dL (NEGATIVE) 09/30/18 04:36 Urine Blood Negative (NEGATIVE) 09/30/18 04:36 Urine Nitrate Negative (NEGATIVE) 09/30/18 04:36 Urine Bilirubin Negative (NEGATIVE) 09/30/18 04:36 Urine Urobilinogen Normal mg/dL (0.2-1.0) 09/30/18 04:36 Ur Leukocyte Esterase Neg Efren/uL (Negative) 09/30/18 04:36 Urine WBC (Auto) 1 /hpf (0-5) 09/30/18 04:36 Urine RBC (Auto) 9 /hpf (0-3) H 09/30/18 04:36 Ur Squamous Epith Cells < 1 /hpf (0-5) 09/30/18 04:36 Amorphous Sediment Rare /ul (<OCC) H 09/29/18 15:45 Urine Bacteria Occ (<OCC) H 09/29/18 15:45 Urine HCG, Qual Positive (NEGATIVE) 09/30/18 04:36 Urine Opiates Screen Positive (NEGATIVE) H 09/30/18 04:36 Urine Methadone Screen Negative (NEGATIVE) 09/30/18 04:36 Ur Barbiturates Screen Negative (NEGATIVE) 09/30/18 04:36 Ur Phencyclidine Scrn Negative (NEGATIVE) 09/30/18 04:36 Ur Amphetamines Screen Negative (NEGATIVE) 09/30/18 04:36 U Benzodiazepines Scrn Negative (NEGATIVE) 09/30/18 04:36 U Oth Cocaine Metabols Negative (NEGATIVE) 09/30/18 04:36 U Cannabinoids Screen Positive (NEGATIVE) H 09/30/18 04:36 Blood Type A POSITIVE 09/29/18 19:51 Antibody Screen Negative 09/29/18 19:51 - Hospital Course Hospital Course: 32 year old female presents to the hospital after reporting vaginal bleeding for the past two days. Patient initially reported the vaginal bleeding on 09/28/18. Patient states she was resting at home when all of a sudden she started to pass large amounts of bright red blood with clots. Patient also had associated abdominal cramping as well. Patient states the pain was a 8/10 in severity. Patient denied taking any medication for the pain. Patient subsequently went into the emergency department where she was found to likely have a miscarriage. Patient was discharged and told to follow up with OB-EMISSIONS TESTING TECHNICIAN. The patient awoke this morning and starting having similar abdominal cramping associated with bright blood and clots. Over the course of the two days patient states she needed to change her pads every couple of hours. Patient reported the pain was a 8/10 in severity and she decided to come back into the hospital. Patient states she didn't have time to see her OB-trial consultant. In conjunction with the cramping she reported some nausea. Patient denies any dizziness, chest pain, shortness of breath, fevers, chills, headaches, changes in vision, or any other complaints. Patient was admitted for spontaneous with intractable nausea and vomiting. Transvaginal US showed no evidence for intrauterine gestational sac and small amount of free fluid in the cul-de-sac and right adnexa. OBGYN was consulted. Patient was given a 3-day course of Methergine. Beta-HCG was monitored and trended down. Nausea and vomiting was controlled with Zofran, Reglan, and Promethazine. Patient slowly advanced her diet. H&H remained stable. Patient's UDS was positive for marijuana. Discussed with patient that this may contribute to vomiting symptoms. Patient's BP was monitored and her Norvasc was increased to 10 mg as BP was frequently elevated. Upon discharge, patient was no longer having nausea and vomiting. She was tolerating PO intake. She denied abdominal pain. Her labs and vitals were stable. She will continue pelvic rest and not attempt for at least 6 months. Discharge Exam - Head Exam Head Exam: ATRAUMATIC, NORMAL INSPECTION, NORMOCEPHALIC - Eye Exam Eye Exam: EOMI, Normal appearance - ENT Exam ENT Exam: Mucous Membranes Moist - Respiratory Exam Respiratory Exam: Clear to PA & Lateral, NORMAL BREATHING PATTERN, UNREMARKABLE - Cardiovascular Exam Cardiovascular Exam: RRR, +S1, +S2 - GI/Abdominal Exam GI & Abdominal Exam: Soft, Unremarkable. absent: Tenderness - Extremities Exam Extremities exam: normal inspection, pedal pulses present - Back Exam Back exam: NORMAL INSPECTION - Neurological Exam Neurological exam: Alert, CN II-XII Intact, Normal Gait, Oriented x3 - Psychiatric Exam Psychiatric exam: Normal Affect, Normal Mood - Skin Skin Exam: Dry, Normal Color, Warm Discharge Plan - Discharge Medications Prescriptions: amLODIPine [Norvasc] 10 mg PO DAILY #30 tab Ondansetron [Zofran] 4 mg PO QID PRN #12 tab PRN Reason: Nausea/Vomiting - Follow Up Plan Condition: IMPROVED Disposition: HOME/ ROUTINE Patient education suggested?: Yes Instructions: Nausea and Vomiting, Adult (DC), Amlodipine, Methylergonovine, Ondansetron Additional Instructions: Follow-up with primary care physician within 1 week of discharge. The following medication has been provided for nausea, to take as needed: Zofran 8 mg PO tablet, 1 tablet 4 times a day as needed Additionally, Norvasc has been increased to 10 mg daily. Follow-up with private BAIL AGENT doctor to make certain that beta-HCG goes down to zero. Continue pelvic rest. Advised to not attempt for at least 6 months. If symptoms recur, please return to ED immediately. Referrals: Peace Sales DO [Staff Provider] -
[2018-10-02] MEDS: Potassium Chloride 20 mEq ER Tab PO SCH ×2 (10:08→11:07)
== END 2018-10-02 14:46 | disposition home or self-care (01) | DRG 779 ==
LOC: C.ER 11:28 → C.3T 18:50 → OBSVTOIN 10-01 10:58 → C.3T 10-01 19:42
PROVIDERS: ADMIT Internal Medicine; ATTEND Internal Medicine
DX: O03.6 Delayed or excessive hemorrhage following complete or unspecified spontaneous abortion (principal); R11.2 Nausea with vomiting, unspecified; I10 Essential (primary) hypertension; F17.210 Nicotine dependence, cigarettes, uncomplicated; F12.90 Cannabis use, unspecified, uncomplicated; Z98.891 History of uterine scar from previous surgery; Z80.1 Family history of malignant neoplasm of trachea, bronchus and lung

== ENCOUNTER 2018-10-03 19:28 | Emergency (ER) | payer OTHER ==
[2018-10-03 19:29] VITALS: BMI 24.0
--- NOTE | 2018-10-03 19:55 | C.PDOC ---
History Of Present Illness Patient presents complaining of vomiting and not tolerating PO. She was discharged yesterday for intractable vomiting, had a miscarriage and was on 3 days of methergine. US on 09/30/18 which showed no IUP, last HCG was 270. Denies fever or chills <Dinorah Valdez - Last Filed: 10/03/18 20:04> <Luci Galindo - Last Filed: 10/03/18 19:52> History Per: Patient History/Exam Limitations: no limitations Onset/Duration Of Symptoms: Hrs Current Symptoms Are (Timing): Still Present Severity: Moderate Pain Scale Rating Of: 4 Location Of Pain/Discomfort: Diffuse <Dinorah Valdez - Last Filed: 10/03/18 20:04> Time Seen by Provider: 10/03/18 19:52 Chief Complaint (Nursing): Abdominal Pain Past Medical History Vital Signs: Last Vital Signs Temp 98.3 F 10/03/18 19:30 Pulse 90 10/03/18 19:30 Resp 16 10/03/18 19:30 BP 145/94 H 10/03/18 19:30 Pulse Ox 100 10/03/18 19:30 - Medical History PMH: HTN (On meds) Denies: Atrial Fibrillation, Cardia Arrhythmia, CHF, Hypercholesterolemia, Mitral Valve Prolapse, Peripheral Edema, Chronic Kidney Disease Surgical History: Denies: Pacemaker - [facility] Procedures INSERTION OF INFUSION DEV INTO SUP VENA CAVA, PERC APPROACH (03/22/17) LOW CERVICAL (10/17/14) TRANSFUSE NONAUT RED BLOOD CELLS IN PERIPH VEIN, PERC (03/22/17) ULTRASONOGRAPHY OF LEFT UPPER EXTREMITY VEINS, GUIDANCE (03/22/17) Family History: States: Unknown Family Hx - Social History Hx Tobacco Use: No Hx Alcohol Use: No Hx Substance Use: Yes (daily use of marijuana) - Immunization History Hx Tetanus Toxoid Vaccination: No Hx Influenza Vaccination: No Hx Pneumococcal Vaccination: No <Luci Galindo - Last Filed: 10/03/18 19:52> Vital Signs: Last Vital Signs Temp 98.3 F 10/03/18 19:30 Pulse 90 10/03/18 19:30 Resp 16 10/03/18 19:30 BP 145/94 H 10/03/18 19:30 Pulse Ox 100 10/03/18 19:55 - [facility] Procedures INSERTION OF INFUSION DEV INTO SUP VENA CAVA, PERC APPROACH (03/22/17) LOW CERVICAL (10/17/14) TRANSFUSE NONAUT RED BLOOD CELLS IN PERIPH VEIN, PERC (03/22/17) ULTRASONOGRAPHY OF LEFT UPPER EXTREMITY VEINS, GUIDANCE (03/22/17) <Dinorah Valdez - Last Filed: 10/03/18 20:04> ED Course And Treatment O2 Sat by Pulse Oximetry: 100 <Luci Galindo - Last Filed: 10/03/18 19:52> Disposition <Luci Galindo - Last Filed: 10/03/18 19:52> <Dinorah Valdez - Last Filed: 10/03/18 20:04> - Disposition Forms: [facility] (Divehi)
[2018-10-03] MEDS ORDERED: Sodium Chloride 0.9% 2,000 ML IV ONE (19:57)
--- NOTE | 2018-10-03 20:05 | C.PDOC ---
History Of Present Illness Patient presents complaining of vomiting and not tolerating PO. She was discharged yesterday for intractable vomiting, had a miscarriage and was on 3 days of methergine. US on 09/30/18 which showed no IUP, last HCG was 270. Denies fever or chills. Time Seen by Provider: 10/03/18 19:52 Chief Complaint (Nursing): Abdominal Pain History Per: Patient History/Exam Limitations: no limitations Onset/Duration Of Symptoms: Days (3) Current Symptoms Are (Timing): Still Present Severity: Moderate Pain Scale Rating Of: 4 Quality Of Discomfort: Cramping Associated Symptoms: Nausea, Vomiting. denies: Fever, Chills Exacerbating Factors: None Alleviating Factors: None Recent travel outside of the [place]: No Abnormal Vaginal Bleeding: No Past Medical History Reviewed: Historical Data, Nursing Documentation, Vital Signs Vital Signs: Last Vital Signs Temp 98.3 F 10/03/18 19:30 Pulse 90 10/03/18 19:30 Resp 16 10/03/18 19:30 BP 145/94 H 10/03/18 19:30 Pulse Ox 100 10/03/18 19:30 - Medical History PMH: HTN (On meds) Denies: Atrial Fibrillation, Cardia Arrhythmia, CHF, Hypercholesterolemia, Mitral Valve Prolapse, Peripheral Edema, Chronic Kidney Disease Surgical History: Denies: Pacemaker - [facility] Procedures INSERTION OF INFUSION DEV INTO SUP VENA CAVA, PERC APPROACH (03/22/17) LOW CERVICAL (10/17/14) TRANSFUSE NONAUT RED BLOOD CELLS IN PERIPH VEIN, PERC (03/22/17) ULTRASONOGRAPHY OF LEFT UPPER EXTREMITY VEINS, GUIDANCE (03/22/17) Family History: States: No Known Family Hx - Social History Hx Tobacco Use: No Hx Alcohol Use: No Hx Substance Use: Yes (daily use of marijuana) - Immunization History Hx Tetanus Toxoid Vaccination: No Hx Influenza Vaccination: No Hx Pneumococcal Vaccination: No Review Of Systems Constitutional: Negative for: Fever, Chills Cardiovascular: Negative for: Chest Pain, Palpitations Respiratory: Negative for: Cough, Shortness of Breath Gastrointestinal: Positive for: Nausea, Vomiting, Abdominal Pain Neurological: Negative for: Weakness, Numbness Physical Exam - Physical Exam Appears: Non-toxic Skin: Warm, Dry Head: Normacephalic Oral Mucosa: Dry Neck: Trachea Midline, Supple Chest: Symmetrical, No Tenderness Cardiovascular: Rhythm Regular Respiratory: No Rales, No Rhonchi, No Wheezing Gastrointestinal/Abdominal: Soft, Tenderness (Mild diffuse), No Guarding, No Rebound Neurological/Psych: Oriented x3 ED Course And Treatment - Laboratory Results Result Diagrams: 10/03/18 20:13 10/03/18 20:13 O2 Sat by Pulse Oximetry: 100 (Room air) Pulse Ox Interpretation: Normal Progress Note: Blood work ordered. IV fluids, pepcid, and zofran administered. Hcg trending down. 2:31 AM Pt tolerating po . wants to go home Reevaluation Time: 02:31 Reassessment Condition: Improved Medical Decision Making Medical Decision Making: Upon provider reevaluation patient is feeling better, is medically stable, and requires no further treatment in the ED at this time. Patient will be discharged home . Counseling was provided and all questions were answered regarding diagnosis and need for follow up with dr elise. There is agreement to discharge plan. Return if symptoms persist or worsen. Disposition Counseled Patient/Family Regarding: Studies Performed, Diagnosis, Need For Followup - Disposition Referrals: Braulio Elise MD [Staff Provider] - Disposition: HOME/ ROUTINE Disposition Time: 02:32 Condition: FAIR Additional Instructions: Please return if symptoms recur. Prescriptions: Metoclopramide [Reglan] 1 tab PO TID PRN #25 tab PRN Reason: Nausea/Vomiting Instructions: Nausea and Vomiting, Adult (DC) Forms: [facility] (Chinese) - Clinical Impression Clinical Impression: Nausea, Vomiting - Scribe Statement The provider has reviewed the documentation as recorded by the Scribatif Zaragoza All medical record entries made by the Scribe were at my direction and perso sheri dictated by me. I have reviewed the chart and agree that the record accurately reflects my personal performance of the history, physical exam, medical decision making, and the department course for this patient. I have also personally directed, reviewed, and agree with the discharge instructions and disposition.
[2018-10-03 20:15] LABS: BASO # 0.1 K/uL (0.0-0.2); BASO % 0.8 % (0.0-2.0); EOS % 0.3 % (0.0-4.0); LYMPH # 2.1 K/uL (1.0-4.3); LYMPH % 25.4 % (20.0-40.0); MEAN CELL VOLUME 79.5 fL (81.0-99.0); MEAN CORPUSCULAR HEMOGLOBIN 25.6 pg (27.0-31.0); MEAN CORPUSCULAR HGB CONC 32.2 g/dL (33.0-37.0); MEAN PLATELET VOLUME 8.4 fL (7.2-11.7); MONO # 0.6 K/uL (0.0-0.8); MONO % 6.7 % (0.0-10.0); NEUT # 5.5 K/uL (1.8-7.0); NEUT % 66.8 % (50.0-75.0); NRBC % 0.1 % (0.0-2.0); RBC 4.73 Mil/uL (3.80-5.20); RED CELL DISTRIBUTION WIDTH 17.5 % (11.5-14.5); WHITE BLOOD COUNT 8.2 K/uL (4.8-10.8)
[2018-10-03 20:35] LABS: ALB/GLOB RATIO 1.8 (1.0-2.1); ALBUMIN 4.7 g/dL (3.5-5.0); ALT/SGPT 39 U/L (9-52); AST/SGOT 23 U/L (14-36); BLOOD UREA NITROGEN 10 mg/dL (7-17); CALCIUM 9.3 mg/dl (8.6-10.4); GFR NON-AFRICAN AMERICAN > 60; LIPASE 32 U/L (23-300)
[2018-10-03 20:41] LABS: HEMOGLOBIN 12.1 g/dL (11.0-16.0)
[2018-10-03 23:25] VITALS: BP 136/79; PULSE 69; RESP 18; TEMP 98.6
[2018-10-04 02:34] VITALS: O2SAT 100
== END 2018-10-04 02:51 | disposition home or self-care (01) ==
LOC: C.ER 19:28
DX: R11.2 Nausea with vomiting, unspecified (principal)
CPT/HCPCS: 80053; 83690; 84702; 85025; 96374; 96375; 99284; C9113; J2060; J2405; J7030